=== PATIENT | female | born 1975 | race Two or more races ===

== ENCOUNTER 2023-03-06 21:26 | Inpatient (IN) | payer OTHER ==
[~2023-03-06] VITALS: Ht 165.1 cm; Wt 77.1 kg
[2023-03-06] MEDS ORDERED: IV NS 0.9% 1,000 ML BAG IV ONE (22:30)
[2023-03-06] MEDS ORDERED: Magnesium 1GM/D5W 100ML PREMIX 200 ML IV ONE (22:42)
[2023-03-06] MEDS ORDERED: AMIODARONE 150 MG/3 ML VIAL IV ONE ×2 (22:42→22:53)
[2023-03-06] MEDS: Magnesium 1GM/D5W 100ML PREMIX 100 ML IV SCH (22:55)
[2023-03-06] MEDS ORDERED: AMIODARONE 150 MG in IV D5W 100 ML IV ONE (23:00)
[2023-03-06] MEDS ORDERED: AMIODARONE 450 MG in IV D5W 241 ML IV PRN (23:00)
[2023-03-06 23:02] LABS: BASOPHILS # (AUTO) 0.1 K/uL (0.0-0.2); BASOPHILS % (AUTO) 0.5 % (0.0-2.0); EOSINOPHILS % (AUTO) 0.1 % (0.0-6.0); HEMATOCRIT 37 % (33-45); HEMOGLOBIN 12.2 g/dL (11.5-14.8); LYMPHOCYTES # (AUTO) 0.5 K/uL (0.8-4.8); LYMPHOCYTES % (AUTO) 3.8 % (20.0-44.0); MEAN CORPUSCULAR HEMOGLOBIN 29 PG (26.0-33.0); MEAN CORPUSCULAR HGB CONC 33 g/dl (31.0-36.0); MEAN CORPUSCULAR VOLUME 90 fL (82-100); MONOCYTES # (AUTO) 1.5 K/uL (0.1-1.30); MONOCYTES % (AUTO) 10.9 % (2.0-12.0); NEUTROPHILS # (AUTO) 11.7 K/uL (1.8-8.9); NEUTROPHILS % (AUTO) 84.7 % (43.0-81.0); PLATELET COUNT (AUTO) 218 K/uL (150-450); RED BLOOD CELL COUNT(AUTO) 4.17 MIL/uL (4.0-5.2); RED CELL DISTRIBUTION WIDTH 13.7 % (11.5-15.0); WHITE BLOOD COUNT (AUTO) 13.8 K/uL (4.3-11.0)
[2023-03-06 23:15] LABS: CALCIUM, SERUM 9.7 mg/dL (8.5-10.1); CARBON DIOXIDE 27 mmol/L (21-32); CHLORIDE 96 mmol/L (98-107); CREATININE 1.5 mg/dL (0.6-1.3); GLUCOSE 133 mg/dL (74-106); POTASSIUM 3.3 mmol/L (3.5-5.1); SODIUM SERUM 132 mmol/L (136-145); UREA NITROGEN, BLOOD 12 mg/dL (7-18)
[2023-03-06 23:22] LABS: ALANINE AMINOTRANSFERASE 25 U/L (12-78); ALBUMIN 3.5 g/dL (3.4-5.0); ALKALINE PHOSPHATASE 143 U/L (46-116); ASPARTATE AMINOTRANSFERASE 22 U/L (15-37); BILIRUBIN,DIRECT 0.2 mg/dL (0.0-0.2); BILIRUBIN,TOTAL 0.4 mg/dL (0.2-1.0); LIPASE < 10 U/L (73-393); TOTAL PROTEIN, SERUM 7.8 g/dL (6.4-8.2)
[2023-03-06 23:34] LABS: THYROID STIMULATING HORMONE 0.628 uIU/mL (0.358-3.74)
[2023-03-07] VITALS (24 sets, daily range): BP systolic 71–113; BP diastolic 42–79; TEMP 97.6–102; O2SAT 90–100
[2023-03-07] MEDS ORDERED: MAG HYDROX/AL HYDROX/SIMETH 30 ML UDC PO PRN
[2023-03-07] MEDS ORDERED: Z GUARD REMEDY 4 OZ OINT TP PRN
[2023-03-07] MEDS: Magnesium 1GM/D5W 100ML PREMIX 100 ML IV SCH
[2023-03-07] MEDS ORDERED: MAGNESIUM HYDROXIDE 30 ML UDC PO PRN
[2023-03-07] MEDS ORDERED: ETOMIDATE 2 MG/ML VIAL ONE (00:52)
[2023-03-07] MEDS ORDERED: ENOXAPARIN SODIUM 40 MG/0.4 ML DISP.SYRIN SQ ONE (00:52)
[2023-03-07] MEDS ORDERED: FENTANYL PF 100MCG/2ML AMPUL IV STA (00:53)
[2023-03-07] MEDS ORDERED: FENTANYL PF 100MCG/2ML AMPUL ONE (00:56)
[2023-03-07] MEDS ORDERED: ETOMIDATE 2 MG/ML VIAL IV ONE ×2 (01:00)
[2023-03-07] MEDS: ENOXAPARIN SODIUM 40 MG/0.4 ML DISP.SYRIN SQ SCH ×2 (01:03→21:38)
[2023-03-07] MEDS ORDERED: AMPH10TA4 PO (02:32)
[2023-03-07] MEDS ORDERED: ESCI20TA PO (02:32)
[2023-03-07] MEDS ORDERED: LEVO88TA5 PO (02:32)
[2023-03-07] MEDS: IV NS 0.9% 1,000 ML IV PRN ×3 (03:09→17:59)
[2023-03-07] MEDS ORDERED: AMIODARONE 150 MG/3 ML VIAL IV ONE (04:49)
[2023-03-07] MEDS ORDERED: AMIODARONE 450 MG in IV D5W 241 ML IV PRN (05:00)
[2023-03-07 08:26] LABS: BASOPHILS % (AUTO) 0.1 % (0.0-2.0); HEMATOCRIT 29 % (33-45); HEMOGLOBIN 9.6 g/dL (11.5-14.8); LYMPHOCYTES # (AUTO) 0.9 K/uL (0.8-4.8); LYMPHOCYTES % (AUTO) 5.8 % (20.0-44.0); MEAN CORPUSCULAR HEMOGLOBIN 29 PG (26.0-33.0); MEAN CORPUSCULAR HGB CONC 33 g/dl (31.0-36.0); MEAN CORPUSCULAR VOLUME 90 fL (82-100); MONOCYTES # (AUTO) 1.6 K/uL (0.1-1.30); MONOCYTES % (AUTO) 10.6 % (2.0-12.0); NEUTROPHILS % (AUTO) 83.5 % (43.0-81.0); PLATELET COUNT (AUTO) 163 K/uL (150-450); RED BLOOD CELL COUNT(AUTO) 3.26 MIL/uL (4.0-5.2); RED CELL DISTRIBUTION WIDTH 13.7 % (11.5-15.0); WHITE BLOOD COUNT (AUTO) 15.6 K/uL (4.3-11.0)
[2023-03-07 08:37] LABS: CALCIUM, SERUM 8.2 mg/dL (8.5-10.1); CREATININE 1.7 mg/dL (0.6-1.3); MAGNESIUM 2.3 mg/dL (1.8-2.4); PHOSPHORUS 2.8 mg/dL (2.5-4.9); POTASSIUM 3.3 mmol/L (3.5-5.1)
[2023-03-07 09:00] LABS: THYROID STIMULATING HORMONE 0.625 uIU/mL (0.358-3.74)
[2023-03-07] MEDS: PANTOPRAZOLE 40 MG TABLET.DR PO SCH (09:30)
[2023-03-07] MEDS ORDERED: POTASSIUM CHLORIDE 20 MEQ TAB.PRT.SR PO SCH (10:00)
[2023-03-07] MEDS ORDERED: IV NS 0.9% 1,000 ML IV ONE (10:30)
[2023-03-07] MEDS ORDERED: IV NS 0.9% 250 ML IV ONE (12:30)
[2023-03-07 17:55] LABS: CREATININE, URINE 150.1 MG/DL (30.0-125.0); URINE TOTAL PROTEIN 244.2 mg/dL (0-11.9)
[2023-03-07 18:15] LABS: APPEARANCE,URINE SLIGHTLY CLOUDY (CLEAR); BILIRUBIN,URINE 1+ (NEGATIVE); BLOOD, URINE 3+ Ery/uL (NEGATIVE); COLOR,URINE YELLOW (YELLOW); KETONES,URINE NEGATIVE (NEGATIVE); LEUKOCYTE ESTERASE ,URINE 1+ (NEGATIVE); NITRITE, URINE NEGATIVE (NEGATIVE); PROTEIN,URINE 2+ mg/dl (NEGATIVE); UGLUCOSE NEGATIVE (NEGATIVE)
[2023-03-07 18:29] LABS: ADD URINE CULTURE YES; BACTERIA,URINE Many /HPF (None Seen); RBC,URINE 21-50 /HPF (0-2); SQUAMOUS EPITHELIAL CELL,UR Few /HPF (None Seen)
[2023-03-07] MEDS: ACETAMINOPHEN 325 MG TABLET PO PRN (19:17)
[2023-03-07 19:23] LABS: EOSINOPHIL,URINE None Seen
[2023-03-08] VITALS (26 sets, daily range): BP systolic 78–106; BP diastolic 46–68; TEMP 98–98.7; O2SAT 90–98
[2023-03-08] MEDS: IV NS 0.9% 1,000 ML IV PRN ×3 (01:43→15:16)
[2023-03-08 06:17] LABS: BASOPHILS % (AUTO) 0.2 % (0.0-2.0); EOSINOPHILS # (AUTO) 0.5 K/uL (0.0-0.7); HEMATOCRIT 27 % (33-45); HEMOGLOBIN 8.8 g/dL (11.5-14.8); LYMPHOCYTES # (AUTO) 0.8 K/uL (0.8-4.8); LYMPHOCYTES % (AUTO) 4.7 % (20.0-44.0); MEAN CORPUSCULAR HEMOGLOBIN 30 PG (26.0-33.0); MEAN CORPUSCULAR HGB CONC 33 g/dl (31.0-36.0); MEAN CORPUSCULAR VOLUME 90 fL (82-100); MONOCYTES % (AUTO) 6.4 % (2.0-12.0); NEUTROPHILS % (AUTO) 85.7 % (43.0-81.0); PLATELET COUNT (AUTO) 144 K/uL (150-450); RED BLOOD CELL COUNT(AUTO) 2.94 MIL/uL (4.0-5.2); RED CELL DISTRIBUTION WIDTH 14.4 % (11.5-15.0); WHITE BLOOD COUNT (AUTO) 16.3 K/uL (4.3-11.0)
[2023-03-08 07:24] LABS: BILIRUBIN,TOTAL 0.4 mg/dL (0.2-1.0); CREATININE 2.6 mg/dL (0.6-1.3); MAGNESIUM 2.1 mg/dL (1.8-2.4); PHOSPHORUS 3.3 mg/dL (2.5-4.9); POTASSIUM 3.7 mmol/L (3.5-5.1); TOTAL PROTEIN, SERUM 5.2 g/dL (6.4-8.2)
[2023-03-08] MEDS: PANTOPRAZOLE 40 MG TABLET.DR PO SCH (07:59)
[2023-03-08] MEDS ORDERED: IV NS 0.9% 1,000 ML IV ONE (10:00)
[2023-03-08] MEDS ORDERED: IV NS 0.9% 250 ML IV ONE ×5 (19:30→22:30)
[2023-03-08] MEDS ORDERED: NOREPINEPHRINE 8 MG in IV NS 0.9% 242 ML IV PRN (19:30)
[2023-03-08] MEDS: ENOXAPARIN SODIUM 40 MG/0.4 ML DISP.SYRIN SQ SCH (21:13)
[2023-03-09] VITALS (24 sets, daily range): BP systolic 81–116; BP diastolic 46–68; TEMP 97.9–99; O2SAT 91–100
[2023-03-09] MEDS: IV NS 0.9% 1,000 ML IV PRN ×3 (01:40→20:15)
[2023-03-09 04:43] LABS: BASOPHILS # (AUTO) 0.1 K/uL (0.0-0.2); BASOPHILS % (AUTO) 0.3 % (0.0-2.0); EOSINOPHILS # (AUTO) 0.4 K/uL (0.0-0.7); EOSINOPHILS % (AUTO) 1.8 % (0.0-6.0); HEMATOCRIT 28 % (33-45); HEMOGLOBIN 9.1 g/dL (11.5-14.8); LYMPHOCYTES # (AUTO) 0.8 K/uL (0.8-4.8); LYMPHOCYTES % (AUTO) 3.9 % (20.0-44.0); MEAN CORPUSCULAR HEMOGLOBIN 29 PG (26.0-33.0); MEAN CORPUSCULAR HGB CONC 33 g/dl (31.0-36.0); MEAN CORPUSCULAR VOLUME 90 fL (82-100); MONOCYTES % (AUTO) 4.9 % (2.0-12.0); NEUTROPHILS # (AUTO) 18.6 K/uL (1.8-8.9); NEUTROPHILS % (AUTO) 89.1 % (43.0-81.0); PLATELET COUNT (AUTO) 172 K/uL (150-450); RED CELL DISTRIBUTION WIDTH 14.7 % (11.5-15.0); WHITE BLOOD COUNT (AUTO) 20.9 K/uL (4.3-11.0)
[2023-03-09 04:56] LABS: ALBUMIN 1.8 g/dL (3.4-5.0); BILIRUBIN,TOTAL 0.4 mg/dL (0.2-1.0); CALCIUM, SERUM 8.1 mg/dL (8.5-10.1); CREATININE 3.1 mg/dL (0.6-1.3); MAGNESIUM 2.1 mg/dL (1.8-2.4); PHOSPHORUS 2.5 mg/dL (2.5-4.9); POTASSIUM 3.9 mmol/L (3.5-5.1); TOTAL PROTEIN, SERUM 5.2 g/dL (6.4-8.2)
[2023-03-09 05:11] LABS: BAND % (MANUAL) 1 % (0.0-5.0); LYMPHOCYTES % (MANUAL) 1 % (16-48); MONOCYTES % (MANUAL) 3 % (0-11.0); NEUTROPHILS % (MANUAL) 95 (42-76); PLATELET ESTIMATE ADEQUATE
[2023-03-09] MEDS: PANTOPRAZOLE 40 MG TABLET.DR PO SCH (07:59)
[2023-03-09] MEDS: MEROPENEM 500 MG in IV NS 0.9% 50 ML IV SCH (14:20)
[2023-03-09] MEDS ORDERED: IV NS 0.9% 250 ML IV ONE (14:30)
[2023-03-09] MEDS: ENOXAPARIN SODIUM 40 MG/0.4 ML DISP.SYRIN SQ SCH (20:24)
[2023-03-10] VITALS (16 sets, daily range): BP systolic 88–116; BP diastolic 54–70; TEMP 98.1–98.6; O2SAT 96–100
[2023-03-10] MEDS: MEROPENEM 500 MG in IV NS 0.9% 50 ML IV SCH ×2 (01:36→14:01)
[2023-03-10] MEDS: IV NS 0.9% 1,000 ML IV PRN (04:37)
[2023-03-10 04:55] LABS: BASOPHILS % (AUTO) 0.2 % (0.0-2.0); EOSINOPHILS # (AUTO) 0.3 K/uL (0.0-0.7); EOSINOPHILS % (AUTO) 1.1 % (0.0-6.0); HEMATOCRIT 27 % (33-45); HEMOGLOBIN 8.8 g/dL (11.5-14.8); LYMPHOCYTES # (AUTO) 1.2 K/uL (0.8-4.8); LYMPHOCYTES % (AUTO) 5.1 % (20.0-44.0); MEAN CORPUSCULAR HEMOGLOBIN 29 PG (26.0-33.0); MEAN CORPUSCULAR HGB CONC 33 g/dl (31.0-36.0); MEAN CORPUSCULAR VOLUME 91 fL (82-100); MONOCYTES # (AUTO) 1.5 K/uL (0.1-1.30); MONOCYTES % (AUTO) 6.3 % (2.0-12.0); NEUTROPHILS # (AUTO) 21.1 K/uL (1.8-8.9); NEUTROPHILS % (AUTO) 87.3 % (43.0-81.0); PLATELET COUNT (AUTO) 221 K/uL (150-450); RED BLOOD CELL COUNT(AUTO) 2.99 MIL/uL (4.0-5.2); RED CELL DISTRIBUTION WIDTH 15.3 % (11.5-15.0); WHITE BLOOD COUNT (AUTO) 24.2 K/uL (4.3-11.0)
[2023-03-10 05:20] LABS: BILIRUBIN,TOTAL 0.5 mg/dL (0.2-1.0); CALCIUM, SERUM 7.9 mg/dL (8.5-10.1); CREATININE 3.2 mg/dL (0.6-1.3); MAGNESIUM 2.3 mg/dL (1.8-2.4); PHOSPHORUS 2.8 mg/dL (2.5-4.9); POTASSIUM 4.8 mmol/L (3.5-5.1); TOTAL PROTEIN, SERUM 5.1 g/dL (6.4-8.2)
[2023-03-10 05:32] LABS: ALBUMIN 1.4 g/dL (3.4-5.0)
[2023-03-10] MEDS: PANTOPRAZOLE 40 MG TABLET.DR PO SCH (08:06)
[2023-03-10] MEDS ORDERED: IV NS 0.9% 250 ML IV PRN (17:30)
[2023-03-10] MEDS: ENOXAPARIN SODIUM 40 MG/0.4 ML DISP.SYRIN SQ SCH (21:12)
[2023-03-11] VITALS: BP 121/66; TEMP 98; O2SAT 95
[2023-03-11] MEDS: MEROPENEM 500 MG in IV NS 0.9% 50 ML IV SCH ×2 (02:00→13:25)
[2023-03-11 04:00] VITALS: BP 115/82; TEMP 98.4; O2SAT 98
[2023-03-11 07:12] LABS: BASOPHILS # (AUTO) 0.1 K/uL (0.0-0.2); BASOPHILS % (AUTO) 0.4 % (0.0-2.0); EOSINOPHILS # (AUTO) 0.5 K/uL (0.0-0.7); EOSINOPHILS % (AUTO) 2.4 % (0.0-6.0); HEMATOCRIT 30 % (33-45); HEMOGLOBIN 9.7 g/dL (11.5-14.8); LYMPHOCYTES # (AUTO) 1.5 K/uL (0.8-4.8); LYMPHOCYTES % (AUTO) 7.7 % (20.0-44.0); MEAN CORPUSCULAR HEMOGLOBIN 29 PG (26.0-33.0); MEAN CORPUSCULAR HGB CONC 32 g/dl (31.0-36.0); MEAN CORPUSCULAR VOLUME 89 fL (82-100); MONOCYTES # (AUTO) 1.9 K/uL (0.1-1.30); MONOCYTES % (AUTO) 9.8 % (2.0-12.0); NEUTROPHILS # (AUTO) 15.6 K/uL (1.8-8.9); NEUTROPHILS % (AUTO) 79.7 % (43.0-81.0); PLATELET COUNT (AUTO) 274 K/uL (150-450); RED BLOOD CELL COUNT(AUTO) 3.37 MIL/uL (4.0-5.2); RED CELL DISTRIBUTION WIDTH 15.5 % (11.5-15.0); WHITE BLOOD COUNT (AUTO) 19.5 K/uL (4.3-11.0)
[2023-03-11 07:29] LABS: BILIRUBIN,TOTAL 0.3 mg/dL (0.2-1.0); CALCIUM, SERUM 8.2 mg/dL (8.5-10.1); CREATININE 3.5 mg/dL (0.6-1.3); MAGNESIUM 2.3 mg/dL (1.8-2.4); PHOSPHORUS 2.6 mg/dL (2.5-4.9); POTASSIUM 3.6 mmol/L (3.5-5.1); TOTAL PROTEIN, SERUM 4.9 g/dL (6.4-8.2)
[2023-03-11 07:35] LABS: ALBUMIN 1.4 g/dL (3.4-5.0)
[2023-03-11 08:00] VITALS: BP 121/71; TEMP 98.8; O2SAT 98
[2023-03-11] MEDS: ACETAMINOPHEN 325 MG TABLET PO PRN (08:01)
[2023-03-11] MEDS: PANTOPRAZOLE 40 MG TABLET.DR PO SCH (08:01)
[2023-03-11 12:00] VITALS: BP 115/73; TEMP 98.6; O2SAT 97
[2023-03-11 16:00] VITALS: BP 122/68; TEMP 98.7; O2SAT 97
[2023-03-11 16:19] LABS: PREGNANCY TEST URINE QUAL NEGATIVE (NEGATIVE)
[2023-03-11 20:00] VITALS: BP 120/71; TEMP 98.2; O2SAT 100
[2023-03-11] MEDS: ENOXAPARIN SODIUM 40 MG/0.4 ML DISP.SYRIN SQ SCH (22:02)
[2023-03-12] VITALS: BP 125/72; TEMP 98.1; O2SAT 99
[2023-03-12] MEDS: MEROPENEM 500 MG in IV NS 0.9% 50 ML IV SCH ×2 (02:52→13:13)
[2023-03-12 04:00] VITALS: BP 122/69; TEMP 98.1; O2SAT 100
[2023-03-12] MEDS: PANTOPRAZOLE 40 MG TABLET.DR PO SCH (07:39)
[2023-03-12 07:41] LABS: ALBUMIN 1.5 g/dL (3.4-5.0); BILIRUBIN,TOTAL 0.3 mg/dL (0.2-1.0); CALCIUM, SERUM 8.7 mg/dL (8.5-10.1); CREATININE 3.5 mg/dL (0.6-1.3); MAGNESIUM 2.2 mg/dL (1.8-2.4); PHOSPHORUS 2.6 mg/dL (2.5-4.9); POTASSIUM 3.5 mmol/L (3.5-5.1); TOTAL PROTEIN, SERUM 5.2 g/dL (6.4-8.2)
[2023-03-12 07:42] LABS: BASOPHILS % (AUTO) 0.2 % (0.0-2.0); EOSINOPHILS # (AUTO) 0.6 K/uL (0.0-0.7); EOSINOPHILS % (AUTO) 2.9 % (0.0-6.0); HEMATOCRIT 31 % (33-45); HEMOGLOBIN 9.9 g/dL (11.5-14.8); LYMPHOCYTES # (AUTO) 1.7 K/uL (0.8-4.8); MEAN CORPUSCULAR HEMOGLOBIN 29 PG (26.0-33.0); MEAN CORPUSCULAR HGB CONC 32 g/dl (31.0-36.0); MEAN CORPUSCULAR VOLUME 89 fL (82-100); MONOCYTES # (AUTO) 1.5 K/uL (0.1-1.30); MONOCYTES % (AUTO) 7.7 % (2.0-12.0); NEUTROPHILS # (AUTO) 15.5 K/uL (1.8-8.9); NEUTROPHILS % (AUTO) 80.2 % (43.0-81.0); PLATELET COUNT (AUTO) 316 K/uL (150-450); RED BLOOD CELL COUNT(AUTO) 3.44 MIL/uL (4.0-5.2); RED CELL DISTRIBUTION WIDTH 15.1 % (11.5-15.0); WHITE BLOOD COUNT (AUTO) 19.3 K/uL (4.3-11.0)
[2023-03-12 08:00] VITALS: BP 108/68; TEMP 98.3; O2SAT 99
[2023-03-12] MEDS: ENSURE ENLIVE 237 ML LIQUID (VANILLA) PO SCH (08:35)
[2023-03-12 09:17] LABS: BAND % (MANUAL) 2 % (0.0-5.0); EOSINOPHILS % (MANUAL) 2 % (0-4); LYMPHOCYTES % (MANUAL) 14 % (16-48); MONOCYTES % (MANUAL) 9 % (0-11.0); MYELOCYTES % 2 % (0-0); NEUTROPHILS % (MANUAL) 71 (42-76)
[2023-03-12 09:18] LABS: PLATELET ESTIMATE ADEQUATE
[2023-03-12 12:00] VITALS: BP 127/78; TEMP 98.3; O2SAT 99
[2023-03-12] MEDS: MUPIROCIN OINT 2% 22 GM TUBE NS SCH ×2 (13:06→21:30)
[2023-03-12] MEDS ORDERED: LEVOFLOXACIN (250MG) 250 MG TABLET PO SCH (15:00)
[2023-03-12] MEDS: METOPROLOL TARTRATE 25 MG TABLET PO SCH ×2 (15:30→21:32)
[2023-03-12 16:00] VITALS: BP 140/87; TEMP 98.8; O2SAT 99
[2023-03-12] MEDS: LEVOTHYROXINE SODIUM 88 MCG TABLET PO SCH (16:10)
[2023-03-12 18:54] LABS: INR 1.22 (0.91-1.10); PROTHROMBIN TIME 12.7 SECS (9.2-11.1)
[2023-03-12 20:00] VITALS: BP 115/72; TEMP 98.1; O2SAT 100
[2023-03-12] MEDS: ENOXAPARIN SODIUM 40 MG/0.4 ML DISP.SYRIN SQ SCH (21:31)
[2023-03-13] VITALS: BP 115/71; TEMP 98; O2SAT 100
[2023-03-13 04:00] VITALS: BP 126/65; TEMP 98.7; O2SAT 99
[2023-03-13 07:38] LABS: CALCIUM, SERUM 8.3 mg/dL (8.5-10.1); CREATININE 3.1 mg/dL (0.6-1.3); POTASSIUM 3.5 mmol/L (3.5-5.1)
[2023-03-13] MEDS: PANTOPRAZOLE 40 MG TABLET.DR PO SCH (07:48)
[2023-03-13] MEDS: LEVOTHYROXINE SODIUM 88 MCG TABLET PO SCH (07:48)
[2023-03-13 08:00] VITALS: BP 120/63; TEMP 98; O2SAT 99
[2023-03-13] MEDS: ENSURE ENLIVE 237 ML LIQUID (VANILLA) PO SCH (08:40)
[2023-03-13] MEDS: MUPIROCIN OINT 2% 22 GM TUBE NS SCH ×2 (08:40→21:07)
[2023-03-13] MEDS: ESCITALOPRAM OXALATE (10 MG) 10 MG TABLET PO SCH (09:01)
[2023-03-13] MEDS: LEVOFLOXACIN (250MG) 250 MG TABLET PO SCH (09:01)
[2023-03-13] MEDS: METOPROLOL TARTRATE 25 MG TABLET PO SCH ×2 (09:02→21:19)
[2023-03-13 09:45] LABS: BASOPHILS # (AUTO) 0.1 K/uL (0.0-0.2); BASOPHILS % (AUTO) 0.5 % (0.0-2.0); EOSINOPHILS # (AUTO) 0.5 K/uL (0.0-0.7); HEMATOCRIT 30 % (33-45); HEMOGLOBIN 9.5 g/dL (11.5-14.8); LYMPHOCYTES # (AUTO) 1.9 K/uL (0.8-4.8); MEAN CORPUSCULAR HEMOGLOBIN 29 PG (26.0-33.0); MEAN CORPUSCULAR HGB CONC 32 g/dl (31.0-36.0); MEAN CORPUSCULAR VOLUME 90 fL (82-100); MONOCYTES # (AUTO) 1.4 K/uL (0.1-1.30); MONOCYTES % (AUTO) 8.5 % (2.0-12.0); NEUTROPHILS # (AUTO) 12.3 K/uL (1.8-8.9); PLATELET COUNT (AUTO) 341 K/uL (150-450); RED BLOOD CELL COUNT(AUTO) 3.31 MIL/uL (4.0-5.2); RED CELL DISTRIBUTION WIDTH 15.3 % (11.5-15.0); WHITE BLOOD COUNT (AUTO) 16.2 K/uL (4.3-11.0)
[2023-03-13 10:06] LABS: BAND % (MANUAL) 2 % (0.0-5.0); EOSINOPHILS % (MANUAL) 2 % (0-4); LYMPHOCYTES % (MANUAL) 22 % (16-48); MONOCYTES % (MANUAL) 6 % (0-11.0); MYELOCYTES % 2 % (0-0); NEUTROPHILS % (MANUAL) 66 (42-76); PLATELET ESTIMATE ADEQUATE
[2023-03-13 12:00] VITALS: BP 122/73; TEMP 98; O2SAT 99
[2023-03-13 16:00] VITALS: BP 124/69; TEMP 98; O2SAT 96
[2023-03-13 20:00] VITALS: BP 131/84; TEMP 97.8; O2SAT 97
[2023-03-13] MEDS: ENOXAPARIN SODIUM 40 MG/0.4 ML DISP.SYRIN SQ SCH (21:20)
[2023-03-14] VITALS: BP 118/69; TEMP 98; O2SAT 96
[2023-03-14 04:00] VITALS: BP 133/85; TEMP 98.3; O2SAT 98
[2023-03-14 07:31] LABS: BASOPHILS % (AUTO) 0.3 % (0.0-2.0); EOSINOPHILS # (AUTO) 0.4 K/uL (0.0-0.7); EOSINOPHILS % (AUTO) 2.8 % (0.0-6.0); HEMATOCRIT 26 % (33-45); HEMOGLOBIN 8.5 g/dL (11.5-14.8); LYMPHOCYTES # (AUTO) 2.3 K/uL (0.8-4.8); LYMPHOCYTES % (AUTO) 14.3 % (20.0-44.0); MEAN CORPUSCULAR HEMOGLOBIN 29 PG (26.0-33.0); MEAN CORPUSCULAR HGB CONC 33 g/dl (31.0-36.0); MEAN CORPUSCULAR VOLUME 88 fL (82-100); MONOCYTES # (AUTO) 1.3 K/uL (0.1-1.30); NEUTROPHILS # (AUTO) 11.8 K/uL (1.8-8.9); NEUTROPHILS % (AUTO) 74.6 % (43.0-81.0); PLATELET COUNT (AUTO) 334 K/uL (150-450); RED CELL DISTRIBUTION WIDTH 14.8 % (11.5-15.0); WHITE BLOOD COUNT (AUTO) 15.8 K/uL (4.3-11.0)
[2023-03-14 07:46] LABS: BILIRUBIN,TOTAL 0.3 mg/dL (0.2-1.0); CALCIUM, SERUM 8.4 mg/dL (8.5-10.1); CREATININE 2.7 mg/dL (0.6-1.3); POTASSIUM 3.9 mmol/L (3.5-5.1); TOTAL PROTEIN, SERUM 5.4 g/dL (6.4-8.2)
[2023-03-14 08:00] VITALS: BP 141/69; TEMP 98.3; O2SAT 100
[2023-03-14] MEDS: LEVOTHYROXINE SODIUM 88 MCG TABLET PO SCH (09:00)
[2023-03-14] MEDS: METOPROLOL TARTRATE 25 MG TABLET PO SCH ×2 (09:00→21:13)
[2023-03-14] MEDS: ESCITALOPRAM OXALATE (10 MG) 10 MG TABLET PO SCH (09:00)
[2023-03-14] MEDS: PANTOPRAZOLE 40 MG TABLET.DR PO SCH (09:00)
[2023-03-14] MEDS: MUPIROCIN OINT 2% 22 GM TUBE NS SCH ×2 (09:06→21:12)
[2023-03-14] MEDS: ENSURE ENLIVE 237 ML LIQUID (VANILLA) PO SCH (09:06)
[2023-03-14 12:00] VITALS: BP 114/85; TEMP 98.7; O2SAT 97
[2023-03-14] MEDS: ONDANSETRON HCL/PF 4 MG/2 ML VIAL IVP PRN (15:52)
[2023-03-14 16:00] VITALS: BP 113/86; TEMP 98.1; O2SAT 98
[2023-03-14 20:00] VITALS: BP 142/68; TEMP 98.2; O2SAT 98
[2023-03-14] MEDS: ENOXAPARIN SODIUM 40 MG/0.4 ML DISP.SYRIN SQ SCH (21:11)
[2023-03-15] VITALS: BP 145/90; TEMP 98.2; O2SAT 99
[2023-03-15 04:00] VITALS: BP 148/82; TEMP 98.2; O2SAT 99
[2023-03-15 06:09] LABS: BASOPHILS % (AUTO) 0.1 % (0.0-2.0); EOSINOPHILS # (AUTO) 0.4 K/uL (0.0-0.7); EOSINOPHILS % (AUTO) 2.3 % (0.0-6.0); HEMATOCRIT 25 % (33-45); HEMOGLOBIN 8.1 g/dL (11.5-14.8); LYMPHOCYTES # (AUTO) 2.4 K/uL (0.8-4.8); LYMPHOCYTES % (AUTO) 14.5 % (20.0-44.0); MEAN CORPUSCULAR HEMOGLOBIN 29 PG (26.0-33.0); MEAN CORPUSCULAR HGB CONC 32 g/dl (31.0-36.0); MEAN CORPUSCULAR VOLUME 89 fL (82-100); MONOCYTES # (AUTO) 1.2 K/uL (0.1-1.30); NEUTROPHILS # (AUTO) 12.7 K/uL (1.8-8.9); NEUTROPHILS % (AUTO) 76.1 % (43.0-81.0); PLATELET COUNT (AUTO) 362 K/uL (150-450); RED BLOOD CELL COUNT(AUTO) 2.81 MIL/uL (4.0-5.2); WHITE BLOOD COUNT (AUTO) 16.7 K/uL (4.3-11.0)
[2023-03-15 06:42] LABS: ALBUMIN 2.2 g/dL (3.4-5.0); BILIRUBIN,TOTAL 0.3 mg/dL (0.2-1.0); CALCIUM, SERUM 8.5 mg/dL (8.5-10.1); CREATININE 2.4 mg/dL (0.6-1.3); TOTAL PROTEIN, SERUM 5.8 g/dL (6.4-8.2)
[2023-03-15 08:00] VITALS: BP 165/97; TEMP 98.9; O2SAT 100
[2023-03-15] MEDS: PANTOPRAZOLE 40 MG TABLET.DR PO SCH (08:12)
[2023-03-15] MEDS: ONDANSETRON HCL/PF 4 MG/2 ML VIAL IVP PRN (08:12)
[2023-03-15] MEDS: LEVOTHYROXINE SODIUM 88 MCG TABLET PO SCH (08:13)
[2023-03-15] MEDS: ESCITALOPRAM OXALATE (10 MG) 10 MG TABLET PO SCH (08:13)
[2023-03-15] MEDS: METOPROLOL TARTRATE 25 MG TABLET PO SCH ×2 (08:13→21:00)
[2023-03-15] MEDS: LEVOFLOXACIN (250MG) 250 MG TABLET PO SCH (08:13)
[2023-03-15] MEDS: ENSURE ENLIVE 237 ML LIQUID (VANILLA) PO SCH (08:16)
[2023-03-15] MEDS: MUPIROCIN OINT 2% 22 GM TUBE NS SCH ×2 (08:17→21:05)
[2023-03-15 12:00] VITALS: BP 135/76; TEMP 98.1; O2SAT 96
[2023-03-15 16:00] VITALS: BP 153/91; TEMP 98.3; O2SAT 97
[2023-03-15 20:00] VITALS: BP 146/82; TEMP 98.5; O2SAT 96
[2023-03-15] MEDS: ENOXAPARIN SODIUM 40 MG/0.4 ML DISP.SYRIN SQ SCH (21:01)
[2023-03-15] MEDS: ZOLPIDEM TARTRATE 5 MG TABLET PO PRN (21:07)
[2023-03-16] VITALS: BP 158/75; TEMP 98.5; O2SAT 96
[2023-03-16 04:00] VITALS: BP 154/85; TEMP 98.4; O2SAT 96
[2023-03-16 05:50] LABS: BASOPHILS # (AUTO) 0.1 K/uL (0.0-0.2); BASOPHILS % (AUTO) 0.8 % (0.0-2.0); EOSINOPHILS # (AUTO) 0.3 K/uL (0.0-0.7); EOSINOPHILS % (AUTO) 1.6 % (0.0-6.0); HEMATOCRIT 26 % (33-45); HEMOGLOBIN 8.5 g/dL (11.5-14.8); LYMPHOCYTES # (AUTO) 2.5 K/uL (0.8-4.8); LYMPHOCYTES % (AUTO) 13.5 % (20.0-44.0); MEAN CORPUSCULAR HEMOGLOBIN 29 PG (26.0-33.0); MEAN CORPUSCULAR HGB CONC 32 g/dl (31.0-36.0); MEAN CORPUSCULAR VOLUME 89 fL (82-100); MONOCYTES % (AUTO) 5.6 % (2.0-12.0); NEUTROPHILS # (AUTO) 14.4 K/uL (1.8-8.9); NEUTROPHILS % (AUTO) 78.5 % (43.0-81.0); PLATELET COUNT (AUTO) 436 K/uL (150-450); RED BLOOD CELL COUNT(AUTO) 2.96 MIL/uL (4.0-5.2); RED CELL DISTRIBUTION WIDTH 14.6 % (11.5-15.0); WHITE BLOOD COUNT (AUTO) 18.3 K/uL (4.3-11.0)
[2023-03-16 06:09] LABS: ALBUMIN 2.2 g/dL (3.4-5.0); BILIRUBIN,TOTAL 0.3 mg/dL (0.2-1.0); CALCIUM, SERUM 8.6 mg/dL (8.5-10.1); CREATININE 2.1 mg/dL (0.6-1.3)
[2023-03-16 08:00] VITALS: BP 128/86; TEMP 98.6; O2SAT 98
[2023-03-16] MEDS: METOPROLOL TARTRATE 25 MG TABLET PO SCH ×2 (09:00→20:36)
[2023-03-16] MEDS: ESCITALOPRAM OXALATE (10 MG) 10 MG TABLET PO SCH (09:02)
[2023-03-16] MEDS: PANTOPRAZOLE 40 MG TABLET.DR PO SCH (09:02)
[2023-03-16] MEDS: LEVOTHYROXINE SODIUM 88 MCG TABLET PO SCH (09:02)
[2023-03-16] MEDS: MUPIROCIN OINT 2% 22 GM TUBE NS SCH ×2 (09:06→20:26)
[2023-03-16] MEDS: ENSURE ENLIVE 237 ML LIQUID (VANILLA) PO SCH ×3 (09:06→17:44)
[2023-03-16 12:00] VITALS: BP 107/62; TEMP 98.9; O2SAT 99
[2023-03-16 16:00] VITALS: BP 140/86; TEMP 98.1; O2SAT 97
[2023-03-16 20:00] VITALS: BP 125/71; TEMP 98.6; O2SAT 99
[2023-03-16] MEDS: METRONIDAZOLE 500 MG TABLET PO SCH (20:26)
[2023-03-16] MEDS: ENOXAPARIN SODIUM 40 MG/0.4 ML DISP.SYRIN SQ SCH (20:28)
[2023-03-16] MEDS: ZOLPIDEM TARTRATE 5 MG TABLET PO PRN (21:44)
[2023-03-17] VITALS: BP 133/93; TEMP 98.1; O2SAT 99
[2023-03-17 04:00] VITALS: BP 150/94; TEMP 98.2; O2SAT 99
[2023-03-17] MEDS: METRONIDAZOLE 500 MG TABLET PO SCH ×3 (05:18→20:27)
[2023-03-17 08:00] VITALS: BP 149/88; TEMP 99.5; O2SAT 99
[2023-03-17] MEDS: ENSURE ENLIVE 237 ML LIQUID (VANILLA) PO SCH ×2 (08:00→17:00)
[2023-03-17 08:41] LABS: BASOPHILS # (AUTO) 0.1 K/uL (0.0-0.2); BASOPHILS % (AUTO) 0.6 % (0.0-2.0); EOSINOPHILS # (AUTO) 0.3 K/uL (0.0-0.7); EOSINOPHILS % (AUTO) 1.6 % (0.0-6.0); HEMATOCRIT 27 % (33-45); HEMOGLOBIN 8.9 g/dL (11.5-14.8); LYMPHOCYTES # (AUTO) 2.3 K/uL (0.8-4.8); LYMPHOCYTES % (AUTO) 12.8 % (20.0-44.0); MEAN CORPUSCULAR HEMOGLOBIN 29 PG (26.0-33.0); MEAN CORPUSCULAR HGB CONC 33 g/dl (31.0-36.0); MEAN CORPUSCULAR VOLUME 89 fL (82-100); MONOCYTES # (AUTO) 1.2 K/uL (0.1-1.30); MONOCYTES % (AUTO) 6.5 % (2.0-12.0); NEUTROPHILS # (AUTO) 13.9 K/uL (1.8-8.9); NEUTROPHILS % (AUTO) 78.5 % (43.0-81.0); PLATELET COUNT (AUTO) 508 K/uL (150-450); RED BLOOD CELL COUNT(AUTO) 3.05 MIL/uL (4.0-5.2); RED CELL DISTRIBUTION WIDTH 14.7 % (11.5-15.0); WHITE BLOOD COUNT (AUTO) 17.7 K/uL (4.3-11.0)
[2023-03-17 08:53] LABS: ALBUMIN 2.4 g/dL (3.4-5.0); BILIRUBIN,TOTAL 0.3 mg/dL (0.2-1.0); CALCIUM, SERUM 8.4 mg/dL (8.5-10.1); CREATININE 1.8 mg/dL (0.6-1.3); POTASSIUM 3.9 mmol/L (3.5-5.1); TOTAL PROTEIN, SERUM 6.1 g/dL (6.4-8.2)
[2023-03-17] MEDS: METOPROLOL TARTRATE 25 MG TABLET PO SCH ×2 (09:00→20:27)
[2023-03-17] MEDS: ESCITALOPRAM OXALATE (10 MG) 10 MG TABLET PO SCH (09:53)
[2023-03-17] MEDS: PANTOPRAZOLE 40 MG TABLET.DR PO SCH (09:53)
[2023-03-17] MEDS: LEVOFLOXACIN (250MG) 250 MG TABLET PO SCH (09:54)
[2023-03-17] MEDS: LEVOTHYROXINE SODIUM 88 MCG TABLET PO SCH (09:58)
[2023-03-17] MEDS: MUPIROCIN OINT 2% 22 GM TUBE NS SCH ×2 (09:58→20:28)
[2023-03-17] MEDS: ONDANSETRON HCL/PF 4 MG/2 ML VIAL IVP PRN (11:01)
[2023-03-17 12:00] VITALS: BP 138/94; TEMP 99.3; O2SAT 99
[2023-03-17 16:00] VITALS: BP 149/81; TEMP 98.4; O2SAT 99
[2023-03-17 20:00] VITALS: BP 123/82; TEMP 98.1; O2SAT 97
[2023-03-17] MEDS: ENOXAPARIN SODIUM 40 MG/0.4 ML DISP.SYRIN SQ SCH (20:25)
[2023-03-17] MEDS: ZOLPIDEM TARTRATE 5 MG TABLET PO PRN (21:21)
[2023-03-18] VITALS: BP 126/77; TEMP 98.2; O2SAT 97
[2023-03-18 04:00] VITALS: BP 137/83; TEMP 98.8; O2SAT 98
[2023-03-18] MEDS: METRONIDAZOLE 500 MG TABLET PO SCH ×3 (05:28→21:05)
[2023-03-18 06:45] LABS: BASOPHILS # (AUTO) 0.1 K/uL (0.0-0.2); BASOPHILS % (AUTO) 0.5 % (0.0-2.0); EOSINOPHILS # (AUTO) 0.2 K/uL (0.0-0.7); EOSINOPHILS % (AUTO) 1.1 % (0.0-6.0); HEMATOCRIT 27 % (33-45); HEMOGLOBIN 8.9 g/dL (11.5-14.8); LYMPHOCYTES # (AUTO) 2.4 K/uL (0.8-4.8); LYMPHOCYTES % (AUTO) 14.8 % (20.0-44.0); MEAN CORPUSCULAR HEMOGLOBIN 29 PG (26.0-33.0); MEAN CORPUSCULAR HGB CONC 33 g/dl (31.0-36.0); MEAN CORPUSCULAR VOLUME 89 fL (82-100); MONOCYTES # (AUTO) 1.1 K/uL (0.1-1.30); MONOCYTES % (AUTO) 6.5 % (2.0-12.0); NEUTROPHILS # (AUTO) 12.6 K/uL (1.8-8.9); NEUTROPHILS % (AUTO) 77.1 % (43.0-81.0); PLATELET COUNT (AUTO) 567 K/uL (150-450); RED BLOOD CELL COUNT(AUTO) 3.08 MIL/uL (4.0-5.2); RED CELL DISTRIBUTION WIDTH 14.9 % (11.5-15.0); WHITE BLOOD COUNT (AUTO) 16.3 K/uL (4.3-11.0)
[2023-03-18 07:13] LABS: ALBUMIN 2.4 g/dL (3.4-5.0); BILIRUBIN,TOTAL 0.3 mg/dL (0.2-1.0); CALCIUM, SERUM 8.4 mg/dL (8.5-10.1); CREATININE 1.8 mg/dL (0.6-1.3); POTASSIUM 3.8 mmol/L (3.5-5.1)
[2023-03-18] MEDS: LEVOTHYROXINE SODIUM 88 MCG TABLET PO SCH (08:44)
[2023-03-18] MEDS: PANTOPRAZOLE 40 MG TABLET.DR PO SCH (08:44)
[2023-03-18] MEDS: ENSURE ENLIVE 237 ML LIQUID (VANILLA) PO SCH ×2 (08:44→17:40)
[2023-03-18] MEDS: METOPROLOL TARTRATE 25 MG TABLET PO SCH ×2 (08:46→20:44)
[2023-03-18] MEDS: ESCITALOPRAM OXALATE (10 MG) 10 MG TABLET PO SCH (09:45)
[2023-03-18] MEDS: MUPIROCIN OINT 2% 22 GM TUBE NS SCH ×2 (09:46→21:09)
[2023-03-18] MEDS: ONDANSETRON HCL/PF 4 MG/2 ML VIAL IVP PRN (09:51)
[2023-03-18 10:34] VITALS: BP 118/78; TEMP 98.6; O2SAT 98
[2023-03-18 14:11] VITALS: BP 125/82; TEMP 98.5; O2SAT 97
[2023-03-18 15:08] LABS: IRON, SERUM 55 ug/dl (50-175); TOTAL IRON BINDING CAPACITY 208 ug/dl (250-450)
[2023-03-18 15:22] LABS: FERRITIN 182 ng/mL (8-388)
[2023-03-18 16:00] VITALS: BP 137/82; TEMP 98.7; O2SAT 97
[2023-03-18 20:00] VITALS: BP 123/70; TEMP 100.2
[2023-03-18] MEDS: ZOLPIDEM TARTRATE 5 MG TABLET PO PRN (21:05)
[2023-03-18] MEDS: ACETAMINOPHEN 325 MG TABLET PO PRN (21:05)
[2023-03-18] MEDS: ENOXAPARIN SODIUM 40 MG/0.4 ML DISP.SYRIN SQ SCH (21:09)
[2023-03-19] VITALS (7 sets, daily range): BP systolic 111–138; BP diastolic 74–87; TEMP 98.5–100.2; O2SAT 96–100
[2023-03-19] MEDS: METRONIDAZOLE 500 MG TABLET PO SCH ×3 (04:25→20:39)
[2023-03-19 06:45] LABS: BASOPHILS # (AUTO) 0.1 K/uL (0.0-0.2); BASOPHILS % (AUTO) 0.7 % (0.0-2.0); EOSINOPHILS # (AUTO) 0.1 K/uL (0.0-0.7); EOSINOPHILS % (AUTO) 0.9 % (0.0-6.0); HEMATOCRIT 29 % (33-45); HEMOGLOBIN 9.7 g/dL (11.5-14.8); LYMPHOCYTES % (AUTO) 14.4 % (20.0-44.0); MEAN CORPUSCULAR HEMOGLOBIN 30 PG (26.0-33.0); MEAN CORPUSCULAR HGB CONC 33 g/dl (31.0-36.0); MEAN CORPUSCULAR VOLUME 90 fL (82-100); MONOCYTES # (AUTO) 0.9 K/uL (0.1-1.30); MONOCYTES % (AUTO) 6.3 % (2.0-12.0); NEUTROPHILS % (AUTO) 77.7 % (43.0-81.0); PLATELET COUNT (AUTO) 645 K/uL (150-450); RED BLOOD CELL COUNT(AUTO) 3.27 MIL/uL (4.0-5.2); RED CELL DISTRIBUTION WIDTH 14.9 % (11.5-15.0); WHITE BLOOD COUNT (AUTO) 14.1 K/uL (4.3-11.0)
[2023-03-19 07:00] LABS: ALBUMIN 2.5 g/dL (3.4-5.0); BILIRUBIN,TOTAL 0.3 mg/dL (0.2-1.0); CALCIUM, SERUM 8.4 mg/dL (8.5-10.1); CREATININE 1.7 mg/dL (0.6-1.3); POTASSIUM 3.4 mmol/L (3.5-5.1); TOTAL PROTEIN, SERUM 6.2 g/dL (6.4-8.2)
[2023-03-19] MEDS: PANTOPRAZOLE 40 MG TABLET.DR PO SCH (07:38)
[2023-03-19] MEDS: LEVOTHYROXINE SODIUM 88 MCG TABLET PO SCH (07:38)
[2023-03-19] MEDS: ENSURE ENLIVE 237 ML LIQUID (VANILLA) PO SCH ×2 (07:46→16:57)
[2023-03-19] MEDS ORDERED: POTASSIUM CHLORIDE 10 MEQ TABLET.SA PO ONE (08:00)
[2023-03-19] MEDS: ESCITALOPRAM OXALATE (10 MG) 10 MG TABLET PO SCH (09:23)
[2023-03-19] MEDS: LEVOFLOXACIN (250MG) 250 MG TABLET PO SCH (09:23)
[2023-03-19] MEDS: METOPROLOL TARTRATE 25 MG TABLET PO SCH ×2 (09:24→20:45)
[2023-03-19] MEDS: ACETAMINOPHEN 325 MG TABLET PO PRN ×2 (12:36→18:19)
[2023-03-19] MEDS: ZOLPIDEM TARTRATE 5 MG TABLET PO PRN ×2 (20:40→22:03)
[2023-03-19] MEDS: ENOXAPARIN SODIUM 40 MG/0.4 ML DISP.SYRIN SQ SCH (20:42)
[2023-03-20] VITALS: BP 140/90; TEMP 99.2; O2SAT 100
[2023-03-20 04:00] VITALS: BP 120/66; TEMP 98.8; O2SAT 99
[2023-03-20] MEDS: METRONIDAZOLE 500 MG TABLET PO SCH ×3 (04:49→21:05)
[2023-03-20 07:24] LABS: BASOPHILS # (AUTO) 0.1 K/uL (0.0-0.2); EOSINOPHILS # (AUTO) 0.1 K/uL (0.0-0.7); EOSINOPHILS % (AUTO) 0.9 % (0.0-6.0); HEMATOCRIT 28 % (33-45); HEMOGLOBIN 9.2 g/dL (11.5-14.8); LYMPHOCYTES # (AUTO) 1.9 K/uL (0.8-4.8); LYMPHOCYTES % (AUTO) 14.4 % (20.0-44.0); MEAN CORPUSCULAR HEMOGLOBIN 29 PG (26.0-33.0); MEAN CORPUSCULAR HGB CONC 33 g/dl (31.0-36.0); MEAN CORPUSCULAR VOLUME 89 fL (82-100); MONOCYTES % (AUTO) 7.4 % (2.0-12.0); NEUTROPHILS # (AUTO) 10.3 K/uL (1.8-8.9); NEUTROPHILS % (AUTO) 76.3 % (43.0-81.0); PLATELET COUNT (AUTO) 656 K/uL (150-450); RED BLOOD CELL COUNT(AUTO) 3.17 MIL/uL (4.0-5.2); RED CELL DISTRIBUTION WIDTH 14.6 % (11.5-15.0); WHITE BLOOD COUNT (AUTO) 13.5 K/uL (4.3-11.0)
[2023-03-20 07:40] LABS: ALBUMIN 2.6 g/dL (3.4-5.0); BILIRUBIN,TOTAL 0.3 mg/dL (0.2-1.0); CALCIUM, SERUM 8.4 mg/dL (8.5-10.1); CREATININE 1.6 mg/dL (0.6-1.3); POTASSIUM 3.4 mmol/L (3.5-5.1); TOTAL PROTEIN, SERUM 6.2 g/dL (6.4-8.2)
[2023-03-20] MEDS: ENSURE ENLIVE 237 ML LIQUID (VANILLA) PO SCH (07:48)
[2023-03-20] MEDS: PANTOPRAZOLE 40 MG TABLET.DR PO SCH (07:51)
[2023-03-20] MEDS: LEVOTHYROXINE SODIUM 88 MCG TABLET PO SCH (07:51)
[2023-03-20 08:00] VITALS: BP 136/82; TEMP 98.9; O2SAT 96
[2023-03-20 08:07] LABS: IMMUNOGLOBULIN A, SERUM 249 mg/dL (87-352); IMMUNOGLOBULIN G, SERUM 958 mg/dL (586-1602); IMMUNOGLOBULIN M, SERUM 75 mg/dL (26-217)
[2023-03-20 09:07] LABS: FOLIC ACID 11.8 ng/mL (>3.0); FREE KAPPA LT CHAINS SERUM 53.5 mg/L (3.3-19.4); FREE LAMBDA LT CHAIN SERUM 26.5 mg/L (5.7-26.3); KAPPA/LAMBDA RATIO SERUM 2.02 (0.26-1.65)
[2023-03-20] MEDS: ESCITALOPRAM OXALATE (10 MG) 10 MG TABLET PO SCH (10:07)
[2023-03-20] MEDS: METOPROLOL TARTRATE 25 MG TABLET PO SCH ×2 (10:07→21:00)
[2023-03-20] MEDS ORDERED: POTASSIUM CHLORIDE 10 MEQ TABLET.SA PO ONE (11:30)
[2023-03-20 12:00] VITALS: BP 113/86; TEMP 98.8; O2SAT 99
[2023-03-20 16:00] VITALS: BP 114/55; TEMP 98.4; O2SAT 100
[2023-03-20 20:00] VITALS: BP 113/64; TEMP 99.7; O2SAT 98
[2023-03-20] MEDS: ZOLPIDEM TARTRATE 5 MG TABLET PO PRN (21:05)
[2023-03-20] MEDS: ENOXAPARIN SODIUM 40 MG/0.4 ML DISP.SYRIN SQ SCH (21:05)
[2023-03-21] VITALS: BP 124/67; TEMP 99; O2SAT 96
[2023-03-21 04:00] VITALS: BP 106/70; TEMP 98.6; O2SAT 98
[2023-03-21] MEDS: METRONIDAZOLE 500 MG TABLET PO SCH ×3 (05:26→22:16)
[2023-03-21 07:10] LABS: BASOPHILS # (AUTO) 0.1 K/uL (0.0-0.2); BASOPHILS % (AUTO) 1.3 % (0.0-2.0); EOSINOPHILS # (AUTO) 0.1 K/uL (0.0-0.7); EOSINOPHILS % (AUTO) 0.9 % (0.0-6.0); HEMATOCRIT 29 % (33-45); HEMOGLOBIN 9.7 g/dL (11.5-14.8); LYMPHOCYTES % (AUTO) 18.5 % (20.0-44.0); MEAN CORPUSCULAR HEMOGLOBIN 30 PG (26.0-33.0); MEAN CORPUSCULAR HGB CONC 33 g/dl (31.0-36.0); MEAN CORPUSCULAR VOLUME 90 fL (82-100); MONOCYTES % (AUTO) 8.9 % (2.0-12.0); NEUTROPHILS # (AUTO) 7.6 K/uL (1.8-8.9); NEUTROPHILS % (AUTO) 70.4 % (43.0-81.0); PLATELET COUNT (AUTO) 670 K/uL (150-450); RED BLOOD CELL COUNT(AUTO) 3.23 MIL/uL (4.0-5.2); RED CELL DISTRIBUTION WIDTH 15.2 % (11.5-15.0); WHITE BLOOD COUNT (AUTO) 10.8 K/uL (4.3-11.0)
[2023-03-21 07:37] LABS: ALBUMIN 2.7 g/dL (3.4-5.0); BILIRUBIN,TOTAL 0.3 mg/dL (0.2-1.0); CREATININE 1.5 mg/dL (0.6-1.3); PHOSPHORUS 3.2 mg/dL (2.5-4.9); POTASSIUM 3.6 mmol/L (3.5-5.1); TOTAL PROTEIN, SERUM 6.3 g/dL (6.4-8.2)
[2023-03-21 07:44] LABS: CALCIUM, SERUM 8.7 mg/dL (8.5-10.1)
[2023-03-21 08:00] VITALS: BP 127/67; TEMP 98.6; O2SAT 99
[2023-03-21] MEDS: LEVOTHYROXINE SODIUM 88 MCG TABLET PO SCH (08:12)
[2023-03-21] MEDS: PANTOPRAZOLE 40 MG TABLET.DR PO SCH (08:12)
[2023-03-21] MEDS: ENSURE ENLIVE 237 ML LIQUID (VANILLA) PO SCH ×2 (08:12→12:14)
[2023-03-21] MEDS: LEVOFLOXACIN (250MG) 250 MG TABLET PO SCH (08:15)
[2023-03-21] MEDS: ESCITALOPRAM OXALATE (10 MG) 10 MG TABLET PO SCH (08:15)
[2023-03-21] MEDS: METOPROLOL TARTRATE 25 MG TABLET PO SCH ×2 (09:00→22:17)
[2023-03-21 11:07] LABS: *SPE A/G RATIO 0.8 (0.7-1.7); *SPE ALBUMIN 2.6 g/dL (2.9-4.4); *SPE ALPHA-1-GLOBULIN 0.4 g/dL (0.0-0.4); *SPE ALPHA-2-GLOBULIN 0.9 g/dL (0.4-1.0); *SPE BETA GLOBULIN 0.8 g/dL (0.7-1.3); *SPE GLOBULIN, TOTAL 3.1 g/dL (2.2-3.9); *SPE M-SPIKE Not Observed g/dL (Not Observed); *SPE PROTEIN TOTAL 5.7 g/dL (6.0-8.5)
[2023-03-21 12:00] VITALS: BP 130/79; TEMP 98.2; O2SAT 99
[2023-03-21 16:00] VITALS: BP 106/80; TEMP 100.6; TEMP 98.4; O2SAT 98
[2023-03-21 20:00] VITALS: BP 105/86; TEMP 99.7; O2SAT 96
[2023-03-21] MEDS: ZOLPIDEM TARTRATE 5 MG TABLET PO PRN (22:16)
[2023-03-22] VITALS: BP 119/77; TEMP 99.5; O2SAT 97
[2023-03-22 04:00] VITALS: BP 138/81; TEMP 98.8; O2SAT 56
[2023-03-22] MEDS: METRONIDAZOLE 500 MG TABLET PO SCH ×2 (04:33→13:29)
[2023-03-22 06:03] LABS: BASOPHILS # (AUTO) 0.2 K/uL (0.0-0.2); BASOPHILS % (AUTO) 2.3 % (0.0-2.0); EOSINOPHILS # (AUTO) 0.1 K/uL (0.0-0.7); EOSINOPHILS % (AUTO) 1.3 % (0.0-6.0); HEMATOCRIT 28 % (33-45); HEMOGLOBIN 9.3 g/dL (11.5-14.8); LYMPHOCYTES % (AUTO) 21.7 % (20.0-44.0); MEAN CORPUSCULAR HEMOGLOBIN 30 PG (26.0-33.0); MEAN CORPUSCULAR HGB CONC 33 g/dl (31.0-36.0); MEAN CORPUSCULAR VOLUME 90 fL (82-100); MONOCYTES % (AUTO) 10.9 % (2.0-12.0); NEUTROPHILS # (AUTO) 5.9 K/uL (1.8-8.9); NEUTROPHILS % (AUTO) 63.8 % (43.0-81.0); PLATELET COUNT (AUTO) 608 K/uL (150-450); RED BLOOD CELL COUNT(AUTO) 3.12 MIL/uL (4.0-5.2); RED CELL DISTRIBUTION WIDTH 15.3 % (11.5-15.0); WHITE BLOOD COUNT (AUTO) 9.3 K/uL (4.3-11.0)
[2023-03-22 06:16] LABS: INR 1.19 (0.91-1.10); PARTIAL THROMBOPLASTIN TIME 28.7 SEC (24.3-34.3); PROTHROMBIN TIME 12.4 SECS (9.2-11.1)
[2023-03-22 06:26] LABS: ALBUMIN 2.7 g/dL (3.4-5.0); BILIRUBIN,TOTAL 0.2 mg/dL (0.2-1.0); CALCIUM, SERUM 8.6 mg/dL (8.5-10.1); CREATININE 1.4 mg/dL (0.6-1.3); MAGNESIUM 1.9 mg/dL (1.8-2.4); POTASSIUM 3.4 mmol/L (3.5-5.1); TOTAL PROTEIN, SERUM 6.3 g/dL (6.4-8.2)
[2023-03-22] MEDS: LEVOTHYROXINE SODIUM 88 MCG TABLET PO SCH ×2 (07:30→08:53)
[2023-03-22] MEDS: PANTOPRAZOLE 40 MG TABLET.DR PO SCH ×2 (07:30→08:53)
[2023-03-22 08:00] VITALS: BP_SYST 109; BP_SYST 118; BP_DIAS 60; BP_DIAS 86; TEMP 97.7; TEMP 98.8; O2SAT 100; O2SAT 98
[2023-03-22] MEDS: ENSURE ENLIVE 237 ML LIQUID (VANILLA) PO SCH ×2 (08:00→13:00)
[2023-03-22] MEDS: ESCITALOPRAM OXALATE (10 MG) 10 MG TABLET PO SCH (08:53)
[2023-03-22] MEDS: METOPROLOL TARTRATE 25 MG TABLET PO SCH ×2 (08:54→21:00)
[2023-03-22] MEDS ORDERED: IOHEXOL 0 ML IV ONE (09:27)
[2023-03-22] MEDS ORDERED: LIDOCAINE HCL/MPF 1% 30 ML VIAL IJ ONE (09:27)
[2023-03-22] MEDS ORDERED: FENTANYL PF 100MCG/2ML AMPUL ONE (10:38)
[2023-03-22] MEDS ORDERED: CLINDAMYCIN 900 MG/6 ML VIAL ONE (10:39)
[2023-03-22] MEDS ORDERED: POTASSIUM CHLORIDE 20 MEQ TAB.PRT.SR PO ONE ×2 (11:30→17:00)
[2023-03-22 13:05] VITALS: BP 110/65; TEMP 97.9; O2SAT 97
[2023-03-22] MEDS: ACETAMINOPHEN 325 MG TABLET PO PRN ×2 (13:32→21:18)
[2023-03-22 16:00] VITALS: BP 103/62; TEMP 98.1; O2SAT 99
[2023-03-22 20:00] VITALS: BP 98/76; TEMP 97.9; O2SAT 99
[2023-03-22] MEDS: ZOLPIDEM TARTRATE 5 MG TABLET PO PRN (22:21)
[2023-03-23] VITALS: BP 123/82; TEMP 98.7; O2SAT 97
[2023-03-23 04:00] VITALS: BP 116/78; TEMP 97.7; O2SAT 97
[2023-03-23] MEDS: PANTOPRAZOLE 40 MG TABLET.DR PO SCH (07:22)
[2023-03-23] MEDS: LEVOTHYROXINE SODIUM 88 MCG TABLET PO SCH (07:22)
[2023-03-23] MEDS: ENSURE ENLIVE 237 ML LIQUID (VANILLA) PO SCH (07:28)
[2023-03-23 07:44] LABS: BASOPHILS # (AUTO) 0.1 K/uL (0.0-0.2); BASOPHILS % (AUTO) 1.3 % (0.0-2.0); EOSINOPHILS # (AUTO) 0.1 K/uL (0.0-0.7); HEMATOCRIT 31 % (33-45); HEMOGLOBIN 10.1 g/dL (11.5-14.8); LYMPHOCYTES # (AUTO) 1.6 K/uL (0.8-4.8); LYMPHOCYTES % (AUTO) 17.3 % (20.0-44.0); MEAN CORPUSCULAR HEMOGLOBIN 30 PG (26.0-33.0); MEAN CORPUSCULAR HGB CONC 33 g/dl (31.0-36.0); MEAN CORPUSCULAR VOLUME 91 fL (82-100); MONOCYTES # (AUTO) 0.8 K/uL (0.1-1.30); MONOCYTES % (AUTO) 9.2 % (2.0-12.0); NEUTROPHILS # (AUTO) 6.6 K/uL (1.8-8.9); NEUTROPHILS % (AUTO) 71.2 % (43.0-81.0); PLATELET COUNT (AUTO) 631 K/uL (150-450); RED BLOOD CELL COUNT(AUTO) 3.41 MIL/uL (4.0-5.2); RED CELL DISTRIBUTION WIDTH 15.3 % (11.5-15.0); WHITE BLOOD COUNT (AUTO) 9.2 K/uL (4.3-11.0)
[2023-03-23 07:53] LABS: ALBUMIN 3.1 g/dL (3.4-5.0); BILIRUBIN,TOTAL 0.3 mg/dL (0.2-1.0); CREATININE 1.5 mg/dL (0.6-1.3); PHOSPHORUS 3.4 mg/dL (2.5-4.9); POTASSIUM 3.8 mmol/L (3.5-5.1); TOTAL PROTEIN, SERUM 7.1 g/dL (6.4-8.2)
[2023-03-23 08:00] VITALS: BP_SYST 126; BP_SYST 138; BP_DIAS 74; BP_DIAS 81; TEMP 98.4; O2SAT 97; O2SAT 98
[2023-03-23] MEDS: METOPROLOL TARTRATE 25 MG TABLET PO SCH (08:29)
[2023-03-23] MEDS: ESCITALOPRAM OXALATE (10 MG) 10 MG TABLET PO SCH (08:29)
[2023-03-23] MEDS ORDERED: METO25TA20 PO (10:22)
[2023-03-23 12:00] VITALS: BP 119/77; TEMP 98.4; O2SAT 97
== END 2023-03-23 13:23 | disposition home or self-care (01) | DRG 853 ==
LOC: ER 21:27 → TELE-TD 23:51 → ICU 03-07 02:14 → TELE1 03-10 13:39
PROVIDERS: ADMIT Student in an Organized Health Care Education/Training Program; ATTEND Student in an Organized Health Care Education/Training Program
PROC: 5A2204Z Restoration of Cardiac Rhythm, Single (ICD-10-PCS; principal; 2023-03-06)
PROC: 05HB33Z Insertion of Infusion Device into Right Basilic Vein, Percutaneous Approach (ICD-10-PCS; 2023-03-09)
PROC: 02HK3KZ Insertion of Defibrillator Lead into Right Ventricle, Percutaneous Approach (ICD-10-PCS; 2023-03-22)
PROC: 0JH608Z Insertion of Defibrillator Generator into Chest Subcutaneous Tissue and Fascia, Open Approach (ICD-10-PCS; 2023-03-22)
DX: A41.51 Sepsis due to Escherichia coli [E. coli] (principal); N17.0 Acute kidney failure with tubular necrosis; I47.20 Ventricular tachycardia, unspecified; E87.1 Hypo-osmolality and hyponatremia; N10 Acute pyelonephritis; N39.0 Urinary tract infection, site not specified; B96.20 Unspecified Escherichia coli [E. coli] as the cause of diseases classified elsewhere; E03.9 Hypothyroidism, unspecified; Z79.890 Hormone replacement therapy; Z79.899 Other long term (current) drug therapy; E87.6 Hypokalemia; R79.89 Other specified abnormal findings of blood chemistry; S00.83XA Contusion of other part of head, initial encounter; W18.30XA Fall on same level, unspecified, initial encounter; Y92.009 Unspecified place in unspecified non-institutional (private) residence as the place of occurrence of the external cause; Z82.49 Family history of ischemic heart disease and other diseases of the circulatory system; Z86.79 Personal history of other diseases of the circulatory system; D64.9 Anemia, unspecified; I95.9 Hypotension, unspecified; D75.839 Thrombocytosis, unspecified; R65.20 Severe sepsis without septic shock; K52.9 Noninfective gastroenteritis and colitis, unspecified
CPT/HCPCS: 36410; 36415; 70450-TC; 71045-TC; 76770-TC; 78582; 80048-TC; 80053-TC; 80076-TC; 81001; 82378; 82570-TC; 82607-TC; 82728-TC; 82784; 83540-TC; 83615-TC; 83690-TC; 83735-TC; 83880; 84100-TC; 84155; 84165; 84300-TC; 84439-TC; 84443-TC; 84484-TC; 84703-TC; 85025-TC; 85378-TC; 85610-TC; 85730-TC; 86334; 87040-TC; 87081-TC; 87086-TC; 87186-TC; 93307-TC; 93970-TC; A4223; A9540; A9567; C1722; G0378; J0282; J1644; J1650; J2185; J2405; J3010; J3475; J3490; J7030; J7050; J7060; Q9967